=== PATIENT | female | born 2000 | race Caucasian/White ===

== ENCOUNTER → 2020-11-27 | Outpatient (CLI) | payer OTHER, SELFPAY ==
[2020-11-27 10:54] VITALS: BMI 19.5
[2020-11-27 15:44] LABS: Chlamydia Trachomatis by PCR Negative (Negative); Neisserai gonorrhoeae by PCR Negative (Negative); Probe Check PASS; Sample Adequacy Control PASS; Specimen Processing Control PASS
== END | disposition home or self-care (01) ==
PROVIDERS: PCP Pediatrics; Referring Provider Nurse Practitioner Women's Health; Visit Provider Nurse Practitioner Women's Health
DX: Z11.3 Encounter for screening for infections with a predominantly sexual mode of transmission (principal)
CPT/HCPCS: 87491; 87591

== ENCOUNTER → 2020-12-04 15:27 | Outpatient (CLI) | payer OTHER, SELFPAY ==
[2020-11-27 10:54] VITALS: BMI 19.5
--- NOTE | 2020-12-04 15:33 | US_ITS ---
STUDY: ULTRASOUND OF THE FEMALE PELVIS - COMPLETE REASON FOR EXAM: Female, 19 years old. pain LMP: 12/01/20 TECHNIQUE: Transabdominal and Transvaginal TECHNICAL QUALITY: Adequate. COMPARISON: None. FINDINGS: The uterus is anteverted and is in a midline position. The uterus measures 8 x 5.2 x 4.0 cm. There is a Nabothian cyst of the cervix. The endometrium measures 3.7 mm in thickness, and is hyperechoic. There is no demonstrated endometrial mass. There is no demonstrated myometrial mass. I.U.D. - The patient does not have an I.U.D. The right ovary is visualized. The right ovary measures 3.6 x 3.4 x 2.7 cm cm. There is no right ovarian cyst or ovarian mass. There is no visualized right adnexal mass or complex lesion. There is normal arterial and normal venous vascularity. The left ovary is visualized. The left ovary measures 3.3 x 1.9 x 2.7 cm cm. There is no left ovarian cyst or ovarian mass. There is no visualized left adnexal mass or complex lesion. There is normal arterial and normal venous vascularity. There is minimal fluid in the cul-de-sac. The pre void volume of the bladder was 113 ml. Polycystic ovary disease: No. US/Pelvic (Non ) IMPRESSION: Normal female pelvis. Electronically Signed: Darrel Monroy DO at 6:49 EDT Tel , Service support ,
--- NOTE | 2020-12-04 15:33 | US_ITS ---
STUDY: ULTRASOUND OF THE FEMALE PELVIS - COMPLETE REASON FOR EXAM: Female, 19 years old. pain LMP: 12/01/20 TECHNIQUE: Transabdominal and Transvaginal TECHNICAL QUALITY: Adequate. COMPARISON: None. FINDINGS: The uterus is anteverted and is in a midline position. The uterus measures 8 x 5.2 x 4.0 cm. There is a Nabothian cyst of the cervix. The endometrium measures 3.7 mm in thickness, and is hyperechoic. There is no demonstrated endometrial mass. There is no demonstrated myometrial mass. I.U.D. - The patient does not have an I.U.D. The right ovary is visualized. The right ovary measures 3.6 x 3.4 x 2.7 cm cm. There is no right ovarian cyst or ovarian mass. There is no visualized right adnexal mass or complex lesion. There is normal arterial and normal venous vascularity. The left ovary is visualized. The left ovary measures 3.3 x 1.9 x 2.7 cm cm. There is no left ovarian cyst or ovarian mass. There is no visualized left adnexal mass or complex lesion. There is normal arterial and normal venous vascularity. There is minimal fluid in the cul-de-sac. The pre void volume of the bladder was 113 ml. Polycystic ovary disease: No. US/Transvaginal Non- IMPRESSION: Normal female pelvis. Electronically Signed: Darrel Monroy DO at 6:49 EDT Tel , Service support ,
== END ==
PROVIDERS: PCP Pediatrics; Referring Provider Nurse Practitioner Women's Health; Visit Provider Nurse Practitioner Women's Health
DX: N92.1 Excessive and frequent menstruation with irregular cycle (principal); R10.2 Pelvic and perineal pain
CPT/HCPCS: 76830; 76856; 93976